=== PATIENT | male | born 1975 | race African-American/Black ===

== ENCOUNTER 2023-08-31 22:57 | Emergency (ER) | payer MEDICAID ==
[~2023-08-31] VITALS: Ht 160 cm; Wt 74.8 kg
[2023-08-31 23:00] VITALS: BP 123/80; PULSE 77; RESP 18; TEMP 97.8; O2SAT 100
[2023-09-01 01:17] LABS: BASOPHILS % (AUTO) 0.3 % (0.0-2.0); EOSINOPHILS % (AUTO) 0.1 % (0.0-4.0); HEMATOCRIT 46.8 % (36-52); LYMPHOCYTES # (AUTO) 1.3 K/uL (2.0-11.5); LYMPHOCYTES % (AUTO) 10.2 % (20.5-51.1); MEAN CORPUSCULAR HEMOGLOBIN 31 pg (27-31); MEAN CORPUSCULAR HGB CONC 34 g/dL (33-37); MEAN CORPUSCULAR VOLUME 90.3 fL (80-94); MONOCYTES # (AUTO) 0.6 K/uL (0.8-1.0); NEUTROPHILS # (AUTO) 10.7 K/uL (1.8-7.7); NEUTROPHILS % (AUTO) 84.4 % (42.2-75.2); PLATELET COUNT (AUTO) 402 K/uL (140-450); RED BLOOD CELL COUNT(AUTO) 5.18 MIL/uL (4.20-6.10); RED CELL DISTRIBUTION WIDTH 13.3 % (11.6-13.7); WHITE BLOOD COUNT (AUTO) 12.6 K/uL (4.8-10.8)
[2023-09-01 01:30] LABS: ALBUMIN 3.8 g/dL (3.4-5.0); ANION GAP 14.3 (8-16); CALCIUM 9.6 mg/dL (8.5-10.1); CARBON DIOXIDE 27.6 mmol/L (21-32); CREATININE 1.2 mg/dL (0.6-1.3); POTASSIUM 3.9 mmol/L (3.5-5.1); TOTAL BILIRUBIN 0.7 mg/dL (0.0-1.0); TOTAL PROTEIN, SERUM 10.2 g/dL (6.4-8.2)
[2023-09-01] MEDS: KETOROLAC 30 MG/ML VIAL IVP ONE (01:34)
[2023-09-01] MEDS: ONDANSETRON 4 MG/2 ML VIAL IVP ONE (01:34)
[2023-09-01] MEDS: NACL 0.9% 1,000 ML IV ONE (01:35)
[2023-09-01 03:00] LABS: APPEARANCE,URINE CLEAR (CLEAR); BILIRUBIN,URINE 1+ (NEGATIVE); BLOOD, URINE TRACE-I (NEGATIVE); COLOR,URINE YELLOW (YELLOW); LEUKOCYTE ESTERASE ,URINE TRACE (NEGATIVE); NITRITE, URINE NEGATIVE (NEGATIVE); PROTEIN,URINE 2+ (NEGATIVE); UGLUCOSE NEGATIVE (NEGATIVE)
[2023-09-01 03:06] LABS: ICTOTEST POSITIVE (NEGATIVE)
[2023-09-01 03:07] LABS: BACTERIA,URINE 10-30 (MOD) /HPF (None Seen); MUCUS,URINE 1+ /LPF (None Seen); SQUAMOUS EPITHELIAL CELL,UR 0-3 (FEW) /LPF (0-3 (FEW))
[2023-09-01 03:21] LABS: BARBITURATE, URINE NEGATIVE ng/ml (NEG <=200)
[2023-09-01 03:22] LABS: AMPHETAMINE, URINE NEGATIVE ng/ml (NEG <=1000); BENZODIAZEPINE, URINE NEGATIVE ng/mL (NEG <=200); CANNABINOID, URINE POSITIVE ng/mL (NEG <=50); COCAINE, URINE POSITIVE ng/mL (NEG <=300); OPIATE, URINE NEGATIVE ng/mL (NEG <=2000); PHENCYCLIDINE SCREEN,URINE NEGATIVE ng/mL (NEG <=25)
[2023-09-01] MEDS ORDERED: CIPR500T4 PO (04:12)
[2023-09-01] MEDS ORDERED: cefTRIAXone 1,000 MG VIAL ONE (04:13)
[2023-09-01 04:49] VITALS: BP 109/61; PULSE 63; RESP 14; TEMP 97.8; O2SAT 98
== END 2023-09-01 04:50 | disposition home or self-care (01) ==
LOC: MED 22:57
DX: N39.0 Urinary tract infection, site not specified (principal); F14.129 Cocaine abuse with intoxication, unspecified; F12.929 Cannabis use, unspecified with intoxication, unspecified; Z79.2 Long term (current) use of antibiotics
CPT/HCPCS: 36415; 74176; 80053; 80305; 81001; 83690; 85025; 87040; 87086; 96361; 96365; 96375; 99285; J0696; J1885; J2405; J7030

== ENCOUNTER 2023-12-02 13:55 | Emergency (ER) | payer MEDICAID ==
[~2023-12-02] VITALS: Ht 162.6 cm; Wt 65.8 kg
[~2023-12-02 13:55] MED LIST: CIPR500T4 PO
[2023-12-02 13:58] VITALS: BP 110/67; PULSE 73; RESP 18; TEMP 98.3; O2SAT 96
[2023-12-02] MEDS ORDERED: DOPPLER MC ONE (14:00)
[2023-12-02] MEDS: NACL 0.9% 1,000 ML IV ONE (14:28)
[2023-12-02] MEDS: ONDANSETRON 4 MG/2 ML VIAL IVP ONE (14:33)
[2023-12-02 14:36] LABS: BASOPHILS # (AUTO) 0.1 K/uL (0.00-0.22); BASOPHILS % (AUTO) 0.5 % (0.0-2.0); EOSINOPHILS % (AUTO) 0.3 % (0.0-4.0); HEMATOCRIT 47.8 % (36-52); HEMOGLOBIN 16.2 g/dL (12.0-18.0); LYMPHOCYTES # (AUTO) 1.7 K/uL (2.0-11.5); LYMPHOCYTES % (AUTO) 12.4 % (20.5-51.1); MEAN CORPUSCULAR HEMOGLOBIN 31 pg (27-31); MEAN CORPUSCULAR HGB CONC 34 g/dL (33-37); MEAN CORPUSCULAR VOLUME 91.8 fL (80-94); MONOCYTES # (AUTO) 0.7 K/uL (0.8-1.0); MONOCYTES % (AUTO) 5.5 % (1.7-9.3); NEUTROPHILS # (AUTO) 10.9 K/uL (1.8-7.7); NEUTROPHILS % (AUTO) 81.3 % (42.2-75.2); PLATELET COUNT (AUTO) 365 K/uL (140-450); RED CELL DISTRIBUTION WIDTH 13.8 % (11.6-13.7); WHITE BLOOD COUNT (AUTO) 13.5 K/uL (4.8-10.8)
[2023-12-02] MEDS: KETOROLAC 30 MG/ML VIAL IVP ONE (14:37)
[2023-12-02 14:53] LABS: ANION GAP 13.9 (8-16); CALCIUM 9.3 mg/dL (8.5-10.1); CARBON DIOXIDE 27.8 mmol/L (21-32); CREATININE 1.3 mg/dL (0.6-1.3); POTASSIUM 3.7 mmol/L (3.5-5.1)
[2023-12-02 15:00] LABS: BILIRUBIN,DIRECT 0.1 mg/dL (0.0-0.3); TOTAL BILIRUBIN 0.9 mg/dL (0.0-1.0); TOTAL PROTEIN, SERUM 8.6 g/dL (6.4-8.2)
[2023-12-02] MEDS ORDERED: ONDA8TAB87 PO (15:11)
[2023-12-02] MEDS ORDERED: LOPE-289 PO (15:11)
[2023-12-02] MEDS ORDERED: IBUP-2213 PO (15:11)
[2023-12-02 16:07] VITALS: BP 130/79; PULSE 86; RESP 15; O2SAT 97
== END 2023-12-02 16:07 | disposition home or self-care (01) ==
LOC: MED 13:55
DX: R10.13 Epigastric pain (principal); R11.2 Nausea with vomiting, unspecified; R19.7 Diarrhea, unspecified; Z79.899 Other long term (current) drug therapy
CPT/HCPCS: 36415; 80048; 80076; 83690; 85025; 96361; 96374; 96375; 99284; J1885; J2405; J7030

== ENCOUNTER 2024-03-19 18:40 | Emergency (ER) | payer MEDICAID ==
[~2024-03-19] VITALS: Ht 162.6 cm; Wt 72.3 kg
[~2024-03-19 18:40] MED LIST changes: +IBUP-2213 PO; +LOPE-289 PO; +ONDA8TAB87 PO
[2024-03-19 18:52] VITALS: BP 135/81; PULSE 64; RESP 18; TEMP 98.2; O2SAT 99
[2024-03-19] MEDS: NACL 0.9% 1,000 ML IV ONE (19:43)
[2024-03-19] MEDS: KETOROLAC 30 MG/ML VIAL IVP ONE (19:45)
[2024-03-19] MEDS: diphenhydrAMINE 50 MG/ML VIAL IVP ONE (19:47)
[2024-03-19] MEDS: HALOPERIDOL IM 5 MG/ML VIAL IM ONE (19:52)
[2024-03-19 19:53] LABS: BASOPHILS % (AUTO) 0.3 % (0.0-2.0); HEMATOCRIT 46.5 % (36-52); HEMOGLOBIN 15.9 g/dL (12.0-18.0); LYMPHOCYTES # (AUTO) 1.3 K/uL (2.0-11.5); LYMPHOCYTES % (AUTO) 8.7 % (20.5-51.1); MEAN CORPUSCULAR HEMOGLOBIN 31 pg (27-31); MEAN CORPUSCULAR HGB CONC 34 g/dL (33-37); MONOCYTES # (AUTO) 0.4 K/uL (0.8-1.0); MONOCYTES % (AUTO) 2.7 % (1.7-9.3); NEUTROPHILS # (AUTO) 12.9 K/uL (1.8-7.7); NEUTROPHILS % (AUTO) 88.3 % (42.2-75.2); PLATELET COUNT (AUTO) 345 K/uL (140-450); RED BLOOD CELL COUNT(AUTO) 5.06 MIL/uL (4.20-6.10); RED CELL DISTRIBUTION WIDTH 14.4 % (11.6-13.7); WHITE BLOOD COUNT (AUTO) 14.6 K/uL (4.8-10.8)
[2024-03-19 20:02] LABS: BILIRUBIN,URINE NEGATIVE (NEGATIVE); BLOOD, URINE NEGATIVE (NEGATIVE); COLOR,URINE YELLOW (YELLOW); LEUKOCYTE ESTERASE ,URINE NEGATIVE (NEGATIVE); NITRITE, URINE NEGATIVE (NEGATIVE); PH,URINE 8.5 (5.0-9.0); PROTEIN,URINE 2+ (NEGATIVE); UGLUCOSE NEGATIVE (NEGATIVE); UROBILINOGEN,URINE 0.2 EU/dL (0.2 - 1)
[2024-03-19 20:12] LABS: APPEARANCE,URINE SLIGHTLY HAZY (CLEAR); RBC,URINE 11-20 (MOD) /HPF (0-5)
[2024-03-19 20:13] LABS: BACTERIA,URINE 2+ /HPF (None Seen); MUCUS,URINE 3+ /LPF (None Seen); SQUAMOUS EPITHELIAL CELL,UR 4-10 (MOD) /LPF (0-3 (FEW)); WBC,URINE 0-5 /HPF (0-5)
[2024-03-19 20:14] LABS: AMPHETAMINE, URINE NEGATIVE ng/ml (NEG <=1000); BARBITURATE, URINE NEGATIVE ng/ml (NEG <=200); BENZODIAZEPINE, URINE NEGATIVE ng/mL (NEG <=200); CANNABINOID, URINE POSITIVE ng/mL (NEG <=50); COCAINE, URINE POSITIVE ng/mL (NEG <=300)
[2024-03-19 20:15] LABS: OPIATE, URINE NEGATIVE ng/mL (NEG <=2000); PHENCYCLIDINE SCREEN,URINE NEGATIVE ng/mL (NEG <=25)
[2024-03-19 20:31] LABS: ALANINE AMINOTRANSFERASE 18 U/L (12-78); ALBUMIN 4.1 g/dL (3.4-5.0); ALCOHOL, BLOOD < 3 mg/dL (<10); ALKALINE PHOSPHATASE 99 U/L (50-136); ANION GAP 18.7 (8-16); ASPARTATE AMINOTRANSFERASE 17 U/L (15-37); CALCIUM 9.5 mg/dL (8.5-10.1); CARBON DIOXIDE 24.5 mmol/L (21-32); CHLORIDE 105 mmol/L (98-107); CREATININE 1.3 mg/dL (0.6-1.3); GFR ARICAN-AMERICAN 76 mL/min (>90); GFR NON ARICAN-AMERICAN 63 mL/min (>90); GLUCOSE 122 mg/dL (74-106); LIPASE 23 U/L (16-77); POTASSIUM 4.2 mmol/L (3.5-5.1); SODIUM SERUM 144 mmol/L (136-145); TOTAL BILIRUBIN 0.7 mg/dL (0.0-1.0); TOTAL PROTEIN, SERUM 8.8 g/dL (6.4-8.2); UREA NITROGEN, BLOOD 12 mg/dL (7-18)
[2024-03-19] MEDS: ALUMINUM HYD/MAG/SIMETHICONE 30 ML UDC PO ONE (20:58)
[2024-03-19] MEDS: HYDROcodone/APAP 5/325 MG 1 TAB TAB PO ONE (20:58)
[2024-03-19 21:15] VITALS: TEMP 100
--- NOTE | 2024-03-19 21:15 | NUR ---
48M BIB AMBULATION C/O EPIGASTRIC PAIN THAT RADIATES THROUGHOUT ABDOMEN. REPORTS N/V FOR THE PAST 3 DAYS. STATES BOWEL MOVMENTS ARE NORMAL, REPORTS CHILLS, DENIES FEVERS AT HOME. AAOX4. NO SIGNS OF RESIRATORY DISTRESS. SAFETY MEASURES IN PLACE. NKA
--- NOTE | 2024-03-19 21:15 | NUR ---
FAMILY MEMBER CAME IN TO VISIT WITH PATIENT, PATIENT UPSET SHE WOKE HIM UP, PATIENT STATES HE HAS BEEN IN SO MUCH PAIN HE HAS NOT BEEN ABLE TO SLEEP AND ASKED THAT NO MORE VISITORS IF HE IS SLEEPING, COMMUNICATED TO [facility]
--- NOTE | 2024-03-19 21:21 | NUR ---
OUT TO CT
--- NOTE | 2024-03-19 21:32 | NUR ---
PATIENT BACK FROM CT.
[2024-03-19] MEDS ORDERED: AMOX1TAB8 PO (22:45)
[2024-03-19] MEDS ORDERED: ONDA8TAB87 PO (22:45)
[2024-03-19] MEDS ORDERED: MAG355OR2 PO (22:45)
[2024-03-19] MEDS ORDERED: ONDA-188 PO (22:45)
[2024-03-19] MEDS ORDERED: FAMO-90 PO (22:45)
[2024-03-19 23:13] VITALS: BP 141/76; PULSE 69; RESP 16; O2SAT 96
--- NOTE | 2024-03-19 23:13 | NUR ---
Patient discharged. Written and verbal after care instructions given and explained. Patient alert, oriented and verbalized understanding of instructions. Ambulatory with steady gait. All questions addressed prior to discharge. ID band removed. Patient advised to follow up with PMD. Rx of Amox-Clav, Pepcid, Maalox and Zofran given. Patient educated on indication of medication including possible reaction and side effects. Opportunity to ask questions provided and answered.
== END 2024-03-19 23:13 | disposition home or self-care (01) ==
LOC: MED 18:40
DX: K52.9 Noninfective gastroenteritis and colitis, unspecified (principal); F12.90 Cannabis use, unspecified, uncomplicated; R11.2 Nausea with vomiting, unspecified; F14.90 Cocaine use, unspecified, uncomplicated; Z79.899 Other long term (current) drug therapy
CPT/HCPCS: 36415; 74177; 80053; 80305; 81001; 83690; 85025; 96361; 96372; 96374; 96375; 99285; G0482; J1200; J1630; J1885; J7030; Q9967